=== PATIENT | female | born 1950 | race Caucasian/White ===

== ENCOUNTER 2016-12-08 10:07 | Day surgery (SDC) | payer OTHER ==
[2016-12-08] MEDS ORDERED: LR 1,000 ML IV ONE (11:29)
[2016-12-08] MEDS ORDERED: LIDOCAINE 1% 2 ML INJ ID PRN (11:29)
[2016-12-08 12:00] LABS: ANION GAP 11 mEq/L (8-16); CALCIUM 9.7 mg/dL (8.5-10.4); CARBON DIOXIDE 28 mEq/l (22-31); CHLORIDE 101 mEq/L (97-110); CREATININE 0.8 mg/dL (0.6-1.0); GLOMERULAR FILTRATION RATE > 60; GLUCOSE 94 mg/dL (70-100); POTASSIUM 3.8 mEq/L (3.5-5.2); SODIUM 140 mEq/L (134-144)
--- NOTE | 2016-12-08 12:11 | PDGENHP ---
History & Physical Chief Complaint: phx polyps History of Present Illness: hx polyps on colon 5 years ago Pertinent Past, Social, Family History: fhx= no cc or polyps. social = no alcohol no tobacco Relevant Physical Exam: A+Ox3. CTAS. S1S2, RRR. +BS, soft nt Cardiorespiratory Assessment: class 2 pt BMI high
[2016-12-08] MEDS ORDERED: MIDAZOLAM 2 MG/2 ML VIAL IVP ONE (13:44)
--- NOTE | 2016-12-08 13:45 | PDANEPAE ---
ANE Past Medical History - Cardiovascular History Hx Hypertension: Yes Hx Arrhythmias: No Hx Chest Pain: No Hx Coronary Artery / Peripheral Vascular Disease: No Hx CHF / Valvular Disease: No Hx Palpitations: No Cardiovascular History Comment: MURMUR - Pulmonary History Hx COPD: No Hx Asthma/Reactive Airway Disease: No Hx Recent Upper Respiratory Infection: No Hx Oxygen in Use at Home: No Hx Sleep Apnea: No Sleep Apnea Screening Result - Last Documented: Positive - Neurologic History Hx Cerebrovascular Accident: No Hx Seizures: No Hx Dementia: No - Endocrine History Hx Diabetes: No Hypothyroid: No Hyperthyroid: No Obesity: yes - Renal History Hx Renal Disorders: No - Liver History Hx Hepatic Disorders: No - Neurological & Psychiatric Hx Hx Neurological and Psychiatric Disorders: No - Cancer History Hx Cancer: No - Congenital Disorder History Hx Congenital Disorders: No - GI History Hx Gastrointestinal Disorders: Yes Gastrointestinal History Comment: PREV POLYP REMVL - Other Health History Other Health History: OSTEOARTHRITIS - Chronic Pain History Chronic Pain: Yes (ALL JOINTS) - Surgical History Prior Surgeries: COLONOSCOPY. APPY. RT WRIST ORIF WITH POST REMVL. DONNIE CATARACT. DONNIE TOTAL KNEE ANE Review of Systems - Exercise capacity METS (RN): 4 METS ANE Patient History - Allergies Allergies/Adverse Reactions: Penicillins Allergy (Verified 12/01/16 10:29) - Home Medications Home Medications: Aspirin 81mg (*) DAILY06 12/01/16 [Last Taken 12/01/16] Estradiol DAILY06 12/01/16 [Last Taken 12/07/16] Fish Oil [place]-3 Softgel DAILY 12/01/16 [Last Taken 12/01/16] Herbal Drugs DAILY 12/01/16 [Last Taken 12/01/16] Losartan/Hydrochlorothiazide DAILY06 12/01/16 [Last Taken 12/07/16] Naprosyn BID 12/01/16 [Last Taken 12/01/16] medroxyPROGESTERone DAILY06 12/01/16 [Last Taken 12/07/16] - NPO status NPO Since - Liquids (Date): 12/08/16 NPO Since - Liquids (Time): 01:30 NPO Since - Solids (Date): 12/07/16 NPO Since - Solids (Time): 09:00 - Smoking Hx Smoking Status: Never smoked ANE Labs/Vital Signs - Labs Result Diagrams: 12/08/16 11:33 - Vital Signs Blood Pressure: 136/71 Heart Rate: 84 Respiratory Rate: 15 O2 Sat (%): 92 Height: 166.37 cm Weight: 108.409 kg ANE Physical Exam - Airway Neck exam: FROM Mallampati Score: Class 3 Mouth exam: normal dental/mouth exam, poor dentition - Cardiovascular Cardiovascular: regular rate and rhythym ANE Anesthesia Plan Anesthesia Plan: MAC
[2016-12-08] MEDS ORDERED: MIDAZOLAM 2 MG/2 ML VIAL ONE (13:49)
[2016-12-08] MEDS ORDERED: fentaNYL 100 MCG/2 ML INJ ONE (13:50)
--- NOTE | 2016-12-08 14:17 | POSTOPPROG ---
Post Op Note Date of Operation: 12/08/16 Surgeon: Kody Rios Anesthesiologist: Hood Anesthesia: Other (Specify) (MAC) Pre-op Diagnosis: phx adenoma polyps removed in 2011 Post-op Diagnosis: no polyps, normal colon Indication: ademoma removed in 2011, surveillance colonoscopy Procedure: colonoscopy Findings: normla colon no polyps, no colitis, no diverticulosis Inf/Abcess present in the surg proc area at time of surgery?: No EBL: none Total fluids administered: 600 ml LR Complications: none immediate
[2016-12-08 14:26] VITALS: PULSE 79
[2016-12-08 14:51] VITALS: RESP 14; TEMP 97.5
[2016-12-08 15:31] VITALS: BP 109/59; O2SAT 90
--- NOTE | 2016-12-08 19:39 | GPN ---
[f rep st] PROCEDURE NOTE DATE OF PROCEDURE: 12/08/2016 PROCEDURE: Colonoscopy. INDICATION FOR COLONOSCOPY: History of small adenomas removed in 2011; this is a surveillance colon oscopy 5 years later. PREOPERATIVE DIAGNOSIS: Rule-out polyps. POSTOPERATIVE DIAGNOSES: Normal colonoscopy to the terminal ileum with good prep. No polyps noted no diverticulosis, no colitis. Retroflex exam was normal. INFORMED CONSENT: I discussed with the patient regarding the procedure, alternatives, benefits, and risks including bleeding, perforation, infection, and risk of medication. Informed consent was sig corona and witnessed. COMPLICATIONS: None immediate. MEDICATIONS USED: MAC, as per Dr. Arreaga. DESCRIPTION OF PROCEDURE: After adequate sedation, the patient remained in left lateral decubitus p osition, and I performed a visual and digital anal rectal examination. The video colonoscope was in serted via the rectum and advanced under visualization to the terminal ilium. I identified the cecu m by the ileocecal valve, confluence of the taeniae, and the appendiceal orifice. Retroflexed exam was performed in the rectum. Careful attention was paid to the mucosa in detail on withdrawal. The prep was good. I did not note any polyps, colitis, diverticulosis, or masses. Retroflex examinati on of the rectum was normal. The endoscope was completely withdrawn, confirming the above findings. The patient tolerated the procedure well and was transferred to the recovery room in satisfactory condition. IMPRESSION: Normal colonoscopy without evidence of recurrent polyps. RECOMMENDATIONS: 1. Repeat colonoscopy in 5 years. If that is without polyps, consider increasing it back to 10 yea rs. 2. Resume previous diet. 3. Discharge home, when alert and stable, with her . 4. Follow up with primary care physician as scheduled. Thank you for allowing me to participate in patient's healthcare. Do not hesitate to call if you donnelly ve any questions. Sincerely, /[id number]/MODL
--- NOTE | 2016-12-09 07:52 | POSTANESTH ---
Post Anesthetic Evaluation Cardiovascular Status: Normal, Stable Respiratory Status: Normal, Stable Level of Consciousness/Mental Status: Can Participate in Eval Pain Control: Adequate, Prn Tx Ordered Nausea/Vomiting Control: Adequate, Prn Tx Ordered Complications Possibly Related to Anesthesia: None Noted
== END 2016-12-08 15:45 | disposition home or self-care (01) ==
LOC: FSGY 10:07
PROVIDERS: ATTEND Internal Medicine Gastroenterology
PROC: 0DJD8ZZ Inspection of Lower Intestinal Tract, Via Natural or Artificial Opening Endoscopic (ICD-10-PCS; principal; 2016-12-08 12:15)
DX: Z12.11 Encounter for screening for malignant neoplasm of colon (principal); Z86.010 Personal history of colon polyps
CPT/HCPCS: J2250; J3010